=== PATIENT | male | born 1995 | race Caucasian/White ===

== ENCOUNTER 2024-04-27 14:27 | Emergency (ER) | payer SELFPAY ==
[2024-04-27 14:34] VITALS: BP 142/64; PULSE 104; RESP 16; TEMP 36.4; O2SAT 100
--- NOTE | 2024-04-27 15:12 | ED.EYEPROB ---
HPI - Eye Problem General Chief complaint: Eye Problems Stated complaint: Foreign Body In Left Eye Time Seen by Provider: 04/27/24 15:05 Source: patient, RN notes reviewed and old records reviewed Mode of arrival: ambulatory Limitations: no limitations History of Present Illness HPI Narrative: 28 YEAR OLD MALE WHO PRESENTS TO [facility] WITH COMPLAINTS OF working on his car 30 minutes prior to arrival and did have safety glasses on but he noted a black speak of something in his left eye right below his pupil and has had redness and irritation since then. He reports that he flushed his eye with saline but did not note any removal of foreign body. He reports continued irritation and redness to his left eye MD chief complaint: eye redness and foreign body Onset (ago): minute(s) (30 minutes prior to arrival) Location: left eye Eye Symptoms: redness, pain and foreign body sensation Place: home Severity scale (1-10): 6 Treatments Prior to Arrival: irrigated eye Related Data Allergies Allergy/AdvReac Type Severity Reaction Status Date / Time Penicillins Allergy Unknown Unknown Verified 04/27/24 14:37 Review of Systems Review of Systems: CONSTITUTIONAL: Denies fever, chills, or sweats. EYES: Denies visual changes. Reports redness,, irritation, feeling of foreign body, denies any sharp pain to his left eye ENT: Denies rhinorrhea, congestion, sore throat, or otalgia. CARDIOVASCULAR: Denies chest pain, palpitations, or edema. RESPIRATORY: Denies cough or dyspnea. SKIN: Denies rash or itching. NEUROLOGIC: Denies headache All systems reviewed & are unremarkable except as noted in HPI and below PMFSH Past Medical History Medical History (Updated 04/30/24 @ 08:52 by Alisson Lo NP) History of strep sore throat Surgical History Surgical History (Updated 04/30/24 @ 08:40 by Alisson Lo NP) History of tonsillectomy Social History Social History (Updated 04/30/24 @ 08:39 by Alisson Lo NP) Smoking status: Never smoker Alcohol intake: current Alcohol use details: social Substance use type: does not use Gender identity (if verbalized by the patient): Male Comments At time of signature, agree with nursing past medical, surgical, social and family history. There is no relevant family history pertinent to the presenting complaint Exam Narrative: GENERAL: Well-appearing, well-nourished, and in no acute distress. HEAD: Normocephalic, atraumatic. EYES: PERRLA and EOMI. Upper and lower eyelids unremarkable. No periorbital cellulitis noted. Sclera reddened of left eye with foreign body sensation and conjunctivae clear. No visual changes or any sharp pain to his left eye ENT: Nares clear, no rhinorrhea or epistaxis. Mucous membranes moist. NECK: Supple.no lymphadenopathy CHEST: Clear to auscultation. No respiratory distress. SAO2 100% on room air HEART: Regular rate and rhythm. No murmur heard. Normal peripheral pulses. SKIN: Warm, dry, no rash. NEURO: No focal deficits. Alert and oriented x3. Course Course Emergency Course: Patient is aware of diagnosis, understands and agrees to treatment plan. Anticipatory guidance given. Patient agrees to follow-up as directed and is aware of reasons to seek care at the emergency department. Portions of this record may have been created with voice recognition software Level of Care: Express Care Visit Vital Signs Vital signs: Vital Signs Temperature 36.4 C 04/27/24 14:34 Pulse Rate 104 H 04/27/24 14:34 Respiratory Rate 16 04/27/24 14:34 Blood Pressure 142/64 H 04/27/24 14:34 Pulse Oximetry 100 04/27/24 14:34 Oxygen Delivery Room Air 04/27/24 14:34 Temperature 36.4 C 04/27/24 14:34 Pulse Rate 104 H 04/27/24 14:34 Respiratory Rate 16 04/27/24 14:34 Blood Pressure 142/64 H 04/27/24 14:34 Pulse Oximetry 100 04/27/24 14:34 Oxygen Delivery Room Air 04/27/24 14:34 Reviewed Procedures FB Removal Eye Foreign Body #1: Foreign Body Removal Date: 04/27/24 Foreign Body Removal Time: 15:15 Time Out performed: Yes Location: eye (L) Topical anesthetic used: tetracaine (0.5 %) Foreign body: other Evidence of corneal penetration: No Technique: irrigation and cotton tip swab Procedure performed under: direct visualization with magnification and other (cordero lamp) Post-procedure medication: topical anesthetic (tetracaine eye drops 2 drops as comfort measure) Patient tolerated procedure: well Complications: other (none) Foreign Body Removal Narrative: Left eye localized with Tetracaine 0.5% 2 drops and examined under magnification with irrigation and use of cotton tip applicator under lids with removal of small black foreign object. Left eye stained with Fluorescein stain and abrasion noted to sclera at 10 o'clock, no corneal abrasion identified. Eye stain rinsed from left eye well and 2 drops of Tetracaine 0.5% applied to left eye as comfort measure. MDM - Eye Problem MDM Narrative Medical decision making narrative: Consideration of the following conditions may be warranted for the presenting problem, they are not final diagnoses: Bacterial conjunctivitis, allergic conjunctivitis, viral conjunctivitis, foreign body, blepharitis, chalazion, hordeolum, corneal abrasion.? Exam findings show no acute concerns or changes; patient is non-toxic appearing and is in no distress.? Patient is appropriate for outpatient treatment and follow-up. Differential Diagnosis Differential diagnosis: Likely other (sclera abrasion, foreign body left eye) Medical Records Attestation: I reviewed the patient's medical records. Critical Care Time Critical Care Time Critical Care Time: No Discharge Plan Discharge Clinical Impression: Foreign body of left eye Qualifiers: Encounter type: initial encounter Qualified Code(s): T15.92XA - Foreign body on external eye, part unspecified, left eye, initial encounter Abrasion of sclera of left eye Qualifiers: Encounter type: initial encounter Qualified Code(s): S05.8X2A - Other injuries of left eye and orbit, initial encounter Patient Disposition: Home, Self-Care Condition: Stable Instructions: Antibiotic Form, Eye Foreign Body (ED) Additional Instructions: COLD COMPRESSES TO THE EYES FOR COMFORT MAY NEED WARM COMPRESSES TO REMOVE DEBRIS IN THE MORNING WHEN CLEANING THE EYES USED A WASHCLOTH IN ONE DIRECTION THEN CHANGE WASHCLOTHS OR USE A COTTON BALL IN ONE DIRECTION AND THEN HIS COTTON BALLS EYEDROPS DIRECTED--MAY BE MORE SOOTHING IF LEFT IN THE REFRIGERATOR DO NOT SHARE MEDICINE--DO NOT TOUCH THE EYE WITH THE MEDICINE TYLENOL OR IBUPROFEN FOR PAIN AVOID SCREEN TIME--TELEVISION, COMPUTER, TABLET OR PHONE. ALSO NO READING OR DRIVING FOLLOW-UP WITH PCP OR VENEER LAYER DIRECTED IF NO IMPROVEMENT IN 48 HOURS IF YOUR SYMPTOMS PERSIST, CHANGE OR WORSEN SIGNIFICANTLY BEFORE YOU CAN CONTACT YOUR PERSONAL PHYSICIAN THEN PLEASE, WITHOUT DELAY, GO TO THE EMERGENCY DEPARTMENT FOR FURTHER EVALUATION. FOLLOW-UP WITH PCP IN 7-10 DAYS OR SOONER IF NEEDED FOLLOW UP WITH PCP SOON IN REGARDS TO YOUR BLOOD PRESSURE WHICH IS ELEVATED ABOVE THRESHOLD FOR REFERRAL. BLOOD PRESSURE ABOVE 120/80 MAY INDICATE PRE-HYPERTENSION. 142/64 Patient Language: Citizen Of [place] Prescriptions: New ofloxacin 0.3 % drops See Rx Instructions .ROUTE .COMPLEX Qty: 10 0RF Rx Instructions: put 1-2 drps into affected eye(s) every 2-4 h x 2 days, then 1-2 drps 4 times/day days 3-7 Follow-up/Referrals: PHYSICIAN,COATING MACHINE OPERATOR [Primary Care Provider] - Stand Alone Forms: Work/School Release IP Time of Disposition: 15:30 [place] Coma Scale Eyes: Open Verbal: Oriented and Alert Motor: Follows Commands Talia Coma Total Score: 15
--- OUTSIDE RECORDS SUMMARY | 2024-04-27 16:35 | XMS_ITS | Clinical Summary ---
Author Organization [facility] Address [address] [place] [address] Phone Care Team Providers Care Frame Stripper Name Role Phone Provider, None Primary Care Provider Unavailabl e Allergies Active Allergy Reactions Criticality Noted Date Comments Penicillins Unknown 06/08/2017 Medications Omeprazole Magnesium (PRILOSEC OTC) 20 MG Tablet Delayed Response Take 20 mg by mouth daily. Active ketorolac (TORADOL) 10 MG Tablet Take 1 Tab by mouth every 6 hours as needed for Pain. 20 Tab 06/08/2017 Active metoclopramide (REGLAN) 10 MG Tablet Take 1 Tab by mouth 4 times daily as needed for Nausea. 10 Tab 06/08/2017 Active HYDROcodone-preston taminophen (NORCO) 5-325 MG TabletIndicatio ns:Dental abscess Take 1 Tablet by mouth every 8 hours as needed for Moderate or more severe pain. 12 Tablet 09/17/2022 Active Social History Tobacco Use Types Packs/Day Years Used Date Smoking Tobacco: Never Smokeless Tobacco: Never Alcohol Use Standard Drinks/Week Comments Yes 0 (1 standard drink = 0.6 oz pur e alcohol) Sex and Gender Information Value Date Recorded Sex Assigned at Not on file Legal Sex Male 8:35 PM CDT Gender Identity Not on file Sexual Orientation Not on file Last Filed Vital Signs Vital Sign Reading Time Taken Comments Blood Pressure 156/80 09/17/2022 8:42 PM CDT Pulse 101 09/17/2022 8:42 PM CDT Temperature 36.4 C (97.6 F) 09/17/2022 8:42 PM CDT Respiratory Rate 18 09/17/2022 8:42 PM CDT Oxygen Saturation 99% 09/17/2022 8:42 PM CDT Inhaled Oxygen Concentration - - Weight 104.3 kg (230 lb) 09/17/2022 8:42 PM CDT Height 193 cm (6' 4 ) 09/17/2022 8:42 PM CDT Body Mass Index 28 09/17/2022 8:42 PM CDT Plan of Treatment Health Maintenance Due Date Last Done Comments Hepatitis C Virus (HCV) Screening 1994 TdaP Immunization 1994 Hepatitis B Immunization (1 of 3 - 19+ 3-dose series) 2013 Influenza Immunization (#1) 2023 SARS-COV-2 Immunization (2 - season) 2023 04/24/2021 Respiratory Syncytial Virus (RSV) Immunization (Adult) (1 - 1-dose 75+ series) 2069 Meningococcal Immunization (ACWY) Aged Out No longer eligible based on patient's age to complete this topic Pneumococcal Immunization Combined Aged Out No longer eligible based on patient's age to complete this topic Rotavirus Immunization Aged Out No lo nger eligible based on patient's age to complete this topic Insurance MEDICAID BLUE [place]OSS [place] Care Teams Frame Stripper Relationship Specialty Start Date End Date Provider, None [place] PCP - General 06/08/17
== END 2024-04-27 15:38 | disposition home or self-care (01) ==
PROVIDERS: Emergency Provider Registered Nurse
DX: T15.12XA Foreign body in conjunctival sac, left eye, initial encounter (principal); W44.9XXA Unspecified foreign body entering into or through a natural orifice, initial encounter
CPT/HCPCS: 65205; 99203; A9270; G0463